=== PATIENT | male | born 1990 | race African-American/Black ===

== ENCOUNTER 2018-05-18 20:51 | Emergency (ER) | payer SELFPAY ==
[~2018-05-18] VITALS: Ht 167.6 cm; Wt 54.4 kg
[2018-05-18 21:21] VITALS: BP 139/70
[2018-05-18] MEDS ORDERED: AMOXICILLIN/K CLAV 875/125MG TABLET. PO ONE (21:30)
[2018-05-18] MEDS ORDERED: DIPHTH,PERTUSS(ACELL),TET TOX 0.5 ML DISP.SYRIN. VAX IM ONE (21:30)
[2018-05-18] MEDS ORDERED: LIDOCAINE 1% Multi-Dose 20 ML VIAL. INJ ONE (21:30)
[2018-05-18] MEDS ORDERED: AMOX1TAB61 PO (22:54)
--- NOTE | 2018-05-18 22:54 | PHYS DOC ---
Past Medical History Past Medical History: No Pertinent History Past Surgical History: No Surgical History Alcohol Use: Rarely Drug Use: None Adult General Chief Complaint Chief Complaint: ANIMAL BITE HPI HPI Patient is a 28 year old male with no significant medical history who presents to the ED today with dog bite to the left hand, patient is right-handed, got bit by his own dog. Dog is up-to-date with its shots. Review of Systems Review of Systems Constitutional: Denies fever or chills [] Musculoskeletal: Denies back pain or joint pain [] Integument: Reports dog bite to the left hand All other systems were reviewed and found to be within normal limits, except as documented in this note. Current Medications Current Medications Current Medications Medications (Trade) Dose Ordered Sig/Ayo Start Time Stop Time Status Last Admin Dose Admin Amoxicillin/ Clavulanate Potassium (Augmentin 875/ 125mg) 1 tab 1X ONCE 05/18/18 21:30 05/18/18 21:31 DC 05/18/18 21:49 1 TAB Diphtheria/ Tetanus/Acell Pertussis (Boostrix) 0.5 ml ONCE ONCE 05/18/18 21:30 05/18/18 21:31 DC 05/18/18 21:50 0.5 ML Lidocaine HCl (Lidocaine 1% 20ml Vial) 20 ml 1X ONCE 05/18/18 21:30 05/18/18 21:31 DC 05/18/18 21:49 20 ML Allergies Allergies Allergies Coded Allergies Type Severity Reaction Last Updated Verified No Known Drug Allergies 03/11/13 No Physical Exam Physical Exam Constitutional: Well developed, well nourished, no acute distress, non-toxic appearance. [] Skin: Webspace between the left middle finger and ring finger with a laceration approximately 2-1/2 cm long consistent with a dog bite. There is no obvious tendon involvement, patient able to flex and extend the fingers with no difficulties at all the joints. Back: No tenderness, no CVA tenderness. [] Extremities: No tenderness, no cyanosis, no clubbing, ROM intact, no edema. [] Neurologic: Alert and oriented X 3, normal motor function, normal sensory function, no focal deficits noted. [] Psychologic: Affect normal, judgement normal, mood normal. [] Current Patient Data Vital Signs Vital Signs Date Time Temp Pulse Resp B/P (MAP) Pulse Ox O2 Delivery O2 Flow Rate FiO2 2/22/19 21:21 97.5 61 20 139/70 (93) 99 Room Air 97.5 EKG EKG [] Radiology/Procedures Radiology/Procedures Left hand x-rays are negative for any acute findings. Laceration/Wound Repair Wound Location: Left hand laceration Wound's Depth, Shape: Vertical Wound Length (cm): Approximately 2-1/2 cm Wound Explored: clean Irrigated w/ Saline (ccs): 500 ML Betadine Prep?: Yes Anesthesia: 1% lidocaine Volume Anesthetic (ccs): Approximately 4 mL Wound Repaired With: Ethilon Suture Size/Type: 5.0/interrupted sutures Number of Sutures: 5 Progress wound was left open to air Course & Med Decision Making Course & Med Decision Making Pertinent Labs and Imaging studies reviewed. (See chart for details) This is a 28-year-old male patient presenting to the ED today with dog bite to the left hand. Patient had a significant laceration to the hand as noted in procedures. You take to be closed. Patient was discharged on Augmentin. Tetanus updated. Wound care instructions and return precautions provided. Dragon Disclaimer Dragon Disclaimer This electronic medical record was generated, in whole or in part, using a voice recognition dictation system. Departure Departure Impression: Primary Impression: Dog bite of left hand Disposition: 01 HOME, SELF-CARE Condition: STABLE Referrals: NO PCP (PCP) Follow up with the emergency room or your own doctor in 7-10 days for stitches removal Patient Instructions: Animal Bite, [id number] Additional Instructions: You have left hand laceration that was closed with stitches. Keep the area clean and dry. You can shower and wash your hands. Apply Neosporin to the laceration site twice a day. Monitor the area for any signs of infection including but not limited to increased redness, warmth, yellow drainage from the area and return to the ED. Follow up with your own doctor in one week or come back to the emergency room and we will remove the stitches. Complete your antibiotics. Scripts Amoxicillin/Potassium Clav (AUGMENTIN 875-125 TABLET) 1 Each Tablet 1 TAB PO BID, #20 TAB Prov: EVI TEMPLE CUT OFF [employer]W [employer] 05/18/18 Problem Qualifiers Primary Impression: Dog bite of left hand Encounter type: initial encounter Qualified Codes: S61.452A - Open bite of left hand, initial encounter; W54.0XXA - Bitten by dog, initial encounter EVI TEMPLE APRN May 18, 2018 22:54
--- NOTE | 2018-05-19 08:19 | RAD ---
Indication:Dog bite TECHNIQUE: 3 views of left hand COMPARISON:None FINDINGS/ impression: No acute fracture or dislocation. There is mild soft tissue swelling overlying the dorsum of the hand with trace amount of emphysema. No radiopaque foreign body. Electronically signed by: Jeremie Torres DO (05/19/2018 8:16 AM) [facility]
== END 2018-05-18 23:15 | disposition home or self-care (01) ==
LOC: ER 20:51
DX: S61.452A Open bite of left hand, initial encounter (principal); W54.0XXA Bitten by dog, initial encounter; Y93.89 Activity, other specified; Y92.89 Other specified places as the place of occurrence of the external cause; Y99.8 Other external cause status
CPT/HCPCS: 12001; 73130; 90471; 90715; 99283

== ENCOUNTER 2020-06-20 21:12 | Emergency (ER) | payer SELFPAY ==
[~2020-06-20] VITALS: Ht 175.3 cm; Wt 53.6 kg
[~2020-06-20 21:12] MED LIST: AMOX1TAB61 PO
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
[2020-06-20] MEDS: KETOROLAC 15 MG/ML VIAL. IVP ONE ×2 (21:48→22:18)
--- NOTE | 2020-06-20 22:08 | RAD ---
Exam: Chest 2 views INDICATION: Chest pain TECHNIQUE: Frontal and lateral views the chest Comparisons: None FINDINGS: The cardiomediastinal silhouette and pulmonary vessels are within normal limits. The lung and pleural spaces are clear. IMPRESSION: No acute cardiopulmonary process. Electronically signed by: Jose Carty MD (06/20/2020 10:05 PM) [facility]
[2020-06-20 22:10] VITALS: BP 140/89
[2020-06-20] MEDS ORDERED: ORPH100T PO (22:10)
--- NOTE | 2020-06-20 22:13 | EKG ---
[facility] [address] [place] [address] Test Date: 2020-06-20 Test Time: 21:18:19 Pat Name: EVANGELIST REED Department: Room: Gender: Accounts Specialist: A8 : 1990 Requested By: MARIPOSA ASHLEY Order Number: [id number] Reading MD: Measurements Intervals [place] Rate: 54 P: 50 FL: 132 QRS: 44 QRSD: 80 T: 31 QT: 372 QTc: 358 Interpretive Statements SINUS RHYTHM LEFT ATRIAL ABNORMALITY ABNORMAL ECG RI6.02 No previous ECG available for comparison
== END 2020-06-20 22:21 | disposition home or self-care (01) ==
LOC: ER 21:12
DX: R07.89 Other chest pain (principal)
CPT/HCPCS: 71046; 93005; 96374; 99283; J1885